=== PATIENT | female | born 1990 | race Caucasian/White ===

== ENCOUNTER 2017-09-09 04:27 | Emergency (ER) | payer OTHER ==
[~2017-09-09] VITALS: Ht 167.6 cm; Wt 90.7 kg
[~2017-09-09 04:27] MED LIST: ACETAMINOPHEN-1 EAC1 PO; AMOXICILLIN 50500 MG PO; APAP500 PO; CLEOCIN HCL150 MG PO; IBUPROFEN 800800 M1 PO; IBUPROFEN 800800 MG PO; LIDOCAINE VISC100 M1 SWISH&SPIT; Magic Mouthwash PO; NORCO 5-325 TA1 EACH PO; PENICILLIN V P500 MG PO; PENICILLIN VK500 M1 PO
[2017-09-09] MEDS ORDERED: NORCO 5-325 TA1 EACH PO (04:46)
== END 2017-09-09 07:57 | disposition home or self-care (01) ==
LOC: ER 04:27
DX: M26.629 Arthralgia of temporomandibular joint, unspecified side (principal); F17.210 Nicotine dependence, cigarettes, uncomplicated; Z88.6 Allergy status to analgesic agent; Z88.8 Allergy status to other drugs, medicaments and biological substances

== ENCOUNTER 2017-10-27 03:22 | Emergency (ER) | payer OTHER ==
[~2017-10-27] VITALS: Ht 167.6 cm; Wt 90.7 kg
[2017-10-27] MEDS ORDERED: HYDROCODONE-AP1 EAC6 PO (03:37)
== END 2017-10-27 03:50 | disposition home or self-care (01) ==
LOC: ER 03:22
DX: S02.5XXA Fracture of tooth (traumatic), initial encounter for closed fracture (principal); F17.210 Nicotine dependence, cigarettes, uncomplicated; Z88.8 Allergy status to other drugs, medicaments and biological substances; X58.XXXA Exposure to other specified factors, initial encounter; Y93.89 Activity, other specified; Y92.89 Other specified places as the place of occurrence of the external cause; Y99.8 Other external cause status